=== PATIENT | male | born 1960 | race Caucasian/White ===

== ENCOUNTER 2022-08-04 16:13 | Inpatient (IN) | payer BC ==
[~2022-08-04] VITALS: Ht 170.2 cm; Wt 111.6 kg
[2022-08-04 16:20] VITALS: BP_SYST 130
--- NOTE | 2022-08-04 16:20 | NUR ---
Patient triaged and placed in waiting room. VSS and patient appears in no acute distress at this time. Accompanied by , awaiting available bed, and MD notified of need for MSE.
--- NOTE | 2022-08-04 16:25 | NUR ---
ER at bedside examining patient.
--- NOTE | 2022-08-04 16:30 | NUR ---
PT BIB FROM [facility]RG[facility]. CC RLQ PAIN. 06/26 PT IS AFEBRILE, FATIQUE AAOX3, SKIN INTACT.
[2022-08-04] MEDS ORDERED: MORPHINE 4 MG INJ. 4 MG/ML VIAL IVP ONE (17:30)
[2022-08-04] MEDS ORDERED: PIPERACILLIN/TAZO 3.375 GM in NS 50 ML IV ONE (17:30)
[2022-08-04 18:11] LABS: BASOPHILS % (AUTO) 0.3 % (0.0-2.0); EOSINOPHILS # (AUTO) 0.1 K/uL (0.0-0.4); EOSINOPHILS % (AUTO) 0.4 % (0.0-4.0); HEMATOCRIT 42.7 % (36-54); HEMOGLOBIN 14.4 g/dL (14.0-18.0); LYMPHOCYTES # (AUTO) 2.4 K/uL (1.0-5.5); LYMPHOCYTES % (AUTO) 17.6 % (20.5-51.5); MEAN CORPUSCULAR HEMOGLOBIN 32 pg (27-31); MEAN CORPUSCULAR HGB CONC 34 % (32-36); MEAN CORPUSCULAR VOLUME 93 fL (79.0-98.0); MONOCYTES # (AUTO) 1.3 K/uL (0.0-1.0); MONOCYTES % (AUTO) 9.1 % (1.7-9.3); NEUTROPHILS % (AUTO) 72.6 % (40.0-70.0); PLATELET COUNT (AUTO) 164 K/uL (130-430); RED BLOOD CELL COUNT(AUTO) 4.57 MIL/uL (4.2-6.2); RED CELL DISTRIBUTION WIDTH 13.4 % (9.0-15.0); WHITE BLOOD COUNT (AUTO) 13.7 K/uL (4.8-10.8)
[2022-08-04 18:17] LABS: INR 1.1 (0.80-1.20)
[2022-08-04 18:32] LABS: CALCIUM 9.6 mg/dL (8.4-11.0); CREATININE 0.85 mg/dL (0.55-1.30)
[2022-08-04 18:39] LABS: ALBUMIN 3.7 g/dL (3.4-4.8); TOTAL BILIRUBIN 0.8 mg/dL (0.0-1.0)
[2022-08-04] MEDS ORDERED: PIPERACILLIN/TAZOBACTAM 3.375 GM/VIAL (ZOSYN) IV ONE (18:51)
--- NOTE | 2022-08-04 19:24 | NUR ---
Admit bed requested Patient will be admitted to care of . Admitted to MEDSURG unit. Diagnosis APPENDICITIS Inpatient (Yes or No) Y Observation (Yes or No) N Orientation concerns or request close to nursing station (Yes or No) N Covid Status PENDING On vent or bipap N Isolation requirements N Needs a sitter N From Home (Yes or if No enter name of facility) HOME Requires Dialysis (Yes or No) N Med Rec Completed (Yes of No) PENDING
--- NOTE | 2022-08-04 20:04 | NUR ---
COVID SAMPLE COLLECTED AND SENT TO LAB
[2022-08-04] MEDS: D5/0.45 NS 1,000 ML IV SCH (21:59)
[2022-08-04] MEDS ORDERED: ACETAMINOPHEN 325 MG TABLET PO PRN (22:15)
[2022-08-04] MEDS ORDERED: MORPHINE 2 MG/ML INJ. SYRINGE IVP PRN ×2 (22:15→22:45)
--- NOTE | 2022-08-04 22:19 | NUR ---
Patient will be admitted to care of MD CALDERON. Admitted to MEDSURG unit. Will go to room 102. Belongings list completed. Complete and up to date summary report printed. SBAR report to be given at bedside with opportunity for questions. PATY CARDENAS TOOK PHONE REPORT.
[2022-08-04 22:37] VITALS: BP_SYST 115
[2022-08-04] MEDS: PIPERACILLIN/TAZO 3.375/DEX-IS 50 ML IV SCH (23:22)
--- NOTE | 2022-08-05 00:31 | NUR ---
CONSULTATION PAGED/CALLED Reason for Consultation: CARDIAC CLEARANCE Person Who was Notified: DR Samantha JANSEN VIA TEXT Consulting Physician: Samantha JANSEN Retail Field Supervisor Specialty: Ordering Physician: KVNG
--- NOTE | 2022-08-05 00:32 | NUR ---
CONSULTATION PAGED/CALLED Reason for Consultation: APPENDICITIS Person Who was Notified: ER SPOKE WITH KULWINDER RBO Consulting Physician: DR KULWINDER MARADIAGA Studio Director Specialty: Ordering Physician: KVNG
[2022-08-05] MEDS ORDERED: PIPERACILLIN/TAZOBACTAM 3.375 GM/VIAL (ZOSYN) IV ONE (04:56)
[2022-08-05] MEDS: PIPERACILLIN/TAZO 3.375/DEX-IS 50 ML IV SCH ×4 (05:10→23:50)
--- NOTE | 2022-08-05 06:11 | NUR ---
rn ntoes patient remains on room air, no sob noted. IV ABX given. Slept all night and shows no s/s of pain at this time, did not ask for any pain medication. D5 1/2 NS @ [address] Rios aware of patient here. NPO since midnight, meds only.
[2022-08-05 08:00] VITALS: BP_SYST 132
[2022-08-05 08:48] LABS: BASOPHILS % (AUTO) 0.4 % (0.0-2.0); EOSINOPHILS % (AUTO) 0.7 % (0.0-4.0); HEMATOCRIT 41.8 % (36-54); HEMOGLOBIN 14.3 g/dL (14.0-18.0); LYMPHOCYTES # (AUTO) 1.6 K/uL (1.0-5.5); LYMPHOCYTES % (AUTO) 23.2 % (20.5-51.5); MEAN CORPUSCULAR HEMOGLOBIN 32 pg (27-31); MEAN CORPUSCULAR HGB CONC 34 % (32-36); MEAN CORPUSCULAR VOLUME 94 fL (79.0-98.0); MONOCYTES # (AUTO) 0.7 K/uL (0.0-1.0); MONOCYTES % (AUTO) 10.4 % (1.7-9.3); NEUTROPHILS # (AUTO) 4.6 K/uL (1.8-7.7); NEUTROPHILS % (AUTO) 65.3 % (40.0-70.0); PLATELET COUNT (AUTO) 152 K/uL (130-430); RED BLOOD CELL COUNT(AUTO) 4.46 MIL/uL (4.2-6.2); RED CELL DISTRIBUTION WIDTH 13.8 % (9.0-15.0); WHITE BLOOD COUNT (AUTO) 7.1 K/uL (4.8-10.8)
[2022-08-05 09:02] LABS: CALCIUM 8.8 mg/dL (8.4-11.0); CREATININE 0.83 mg/dL (0.55-1.30)
[2022-08-05 09:06] LABS: INR 1.1 (0.80-1.20); PROTHROMBIN TIME 10.8 SECS (9.5-12.5)
[2022-08-05] MEDS: D5/0.45 NS 1,000 ML IV SCH ×2 (11:03→18:45)
[2022-08-05] MEDS ORDERED: METF-518 PO (12:07)
[2022-08-05] MEDS ORDERED: RIVA20TA PO (12:07)
[2022-08-05] MEDS ORDERED: SITA100T11 PO (12:07)
[2022-08-05] MEDS ORDERED: CARV6.2554 PO (12:07)
[2022-08-05] MEDS ORDERED: FLEC50TA2 PO (12:12)
[2022-08-05 12:23] LABS: BILIRUBIN,URINE NEGATIVE (NEGATIVE); BLOOD, URINE NEGATIVE (NEGATIVE); CLARITY/URINE CLEAR (CLEAR); COLOR,URINE YELLOW (YELLOW); GLUCOSE,URINE NEGATIVE (NEGATIVE); KETONES,URINE NEGATIVE (NEGATIVE); LEUKOCYTE ESTERASE ,URINE NEGATIVE (NEGATIVE); NITRITE, URINE NEGATIVE (NEGATIVE); PH,URINE 6.5 (5.0-8.0); PROTEIN URINE NEGATIVE (NEGATIVE)
[2022-08-05] MEDS ORDERED: NS IRRIG SOLN 1000 ML IR ONE (16:30)
[2022-08-05] MEDS ORDERED: ROCURONIUM BROMIDE 10 MG/ML (ZEMURON) IV ONE (16:30)
[2022-08-05] MEDS ORDERED: PROPOFOL 200MG/ 20ML VIAL (DIPRIVAN) IV ONE (16:30)
[2022-08-05] MEDS ORDERED: BUPIVACAINE /PF 0.25% 30 ML VIAL INJ ONE (16:30)
[2022-08-05] MEDS ORDERED: PHENYLEPHRINE HCL 10 MG/ML VIAL (NEOSYNEPHRINE) IV ONE (16:30)
[2022-08-05] MEDS ORDERED: LR 1,000 ML IV.SOLN IV ONE (16:30)
[2022-08-05] MEDS ORDERED: DEXAMETHASONE SOD PHOSPHATE 4 MG/ML VIAL IVP ONE (16:30)
[2022-08-05] MEDS ORDERED: SEVOFLURANE 15 MIN GAS INH ONE (16:30)
[2022-08-05] MEDS ORDERED: MIDAZOLAM HCL 5 MG/5 ML VIAL IVP ONE (16:30)
[2022-08-05] MEDS ORDERED: SUGAMMADEX SODIUM 200 MG/2 ML VIAL IV ONE (16:30)
[2022-08-05] MEDS ORDERED: METOPROLOL TARTRATE 5 MG/5 ML VIAL IVP ONE (16:30)
[2022-08-05] MEDS ORDERED: HYDROmorphone 2 MG/ML VIAL IVP ONE (16:30)
[2022-08-05] MEDS ORDERED: dilTIAZem HCL IVP 5 MG/ML VIAL ONE (16:48)
[2022-08-05] MEDS ORDERED: VERAPAMIL HCL 2.5 MG/ML 2ML VIAL ONE (16:49)
[2022-08-05] MEDS ORDERED: MEPERIDINE HCL/PF 25 MG/ML DISP.SYRIN IVP PRN (17:45)
[2022-08-05] MEDS ORDERED: ONDANSETRON HCL 4 MG/2 ML VIAL IVP PRN (17:45)
[2022-08-05] MEDS ORDERED: HYDROmorphone 1 MG/ML INJ. CARTRIDGE IVP PRN (17:45)
[2022-08-05] MEDS ORDERED: NALOXONE HCL 0.4 MG/ML AMP (NARCAN) IVP PRN (17:45)
[2022-08-05 17:49] VITALS: BP_SYST 132
[2022-08-05] MEDS ORDERED: MEPERIDINE HCL/PF 25 MG/ML DISP.SYRIN ONE (18:17)
[2022-08-05 18:37] VITALS: BP_SYST 121
[2022-08-05 19:17] VITALS: BP_SYST 107
--- NOTE | 2022-08-05 19:30 | NUR ---
Patient awaiting surgery most of day. Dr MARADIAGA called mid morning to alert staff of surgery to be scheduled this afternoon. New order's noted with chest x ray, echo, T/C for blood etc. No pain prior to surgery HR slightly on high side 110's to 120's with BP in 130 systolic range. Patient taken to surgery around 16:00 and returned prior to night cleaner 18:45. VSS no temp on O2 at 2 liter's NS sat's good at 96 percent. Already requesting to eat. Prior to giving patient over to night cleaner started on clear liquid's tolerated well then can advance to soft low fiber as tolerated. Patient received Cardizem and Verapamil during surgery for HR. Patient came back from surgery with HR 106 to 110. Medication's placed in system earlier by myself for reconciliation. Patient diabetic with some heart disease. Plan to start home med's tomorrow. to stay with patient tonight at bedside. Requesting pain medication already received dose Demerol before coming to floor by recovery nurse. In good spirit's no complication's. Noted to have three small incision's from surgery all intact in lower abdomen. Report given to night nurse to follow up on pain medication.
[2022-08-05] MEDS ORDERED: MORPHINE 4 MG INJ. 4 MG/ML VIAL IVP PRN (20:45)
[2022-08-05 21:45] VITALS: BP_SYST 114
[2022-08-06] MEDS: D5/0.45 NS 1,000 ML IV SCH (02:48)
[2022-08-06] MEDS: PIPERACILLIN/TAZO 3.375/DEX-IS 50 ML IV SCH ×3 (05:30→18:10)
--- NOTE | 2022-08-06 06:19 | NUR ---
rn notes patient remains on room air, no sob noted, pain under control all shift. Given IV abx. Still waiting for medication recon, per AM nurse, is aware of the task.
[2022-08-06] MEDS: HYDROmorphone 2 MG/ML VIAL IVP PRN ×2 (06:47→22:23)
[2022-08-06 07:22] LABS: BASOPHILS % (AUTO) 0.1 % (0.0-2.0); HEMATOCRIT 42.4 % (36-54); HEMOGLOBIN 14.4 g/dL (14.0-18.0); LYMPHOCYTES # (AUTO) 1.1 K/uL (1.0-5.5); LYMPHOCYTES % (AUTO) 10.1 % (20.5-51.5); MEAN CORPUSCULAR HEMOGLOBIN 32 pg (27-31); MEAN CORPUSCULAR HGB CONC 34 % (32-36); MEAN CORPUSCULAR VOLUME 94 fL (79.0-98.0); MONOCYTES # (AUTO) 0.5 K/uL (0.0-1.0); NEUTROPHILS # (AUTO) 9.2 K/uL (1.8-7.7); NEUTROPHILS % (AUTO) 84.8 % (40.0-70.0); PLATELET COUNT (AUTO) 176 K/uL (130-430); RED CELL DISTRIBUTION WIDTH 13.5 % (9.0-15.0); WHITE BLOOD COUNT (AUTO) 10.9 K/uL (4.8-10.8)
[2022-08-06 07:59] LABS: ALBUMIN 3.1 g/dL (3.4-4.8); CALCIUM 8.8 mg/dL (8.4-11.0); CREATININE 0.95 mg/dL (0.55-1.30); TOTAL BILIRUBIN 0.6 mg/dL (0.0-1.0)
[2022-08-06 08:00] VITALS: BP_SYST 108
[2022-08-06 11:45] VITALS: BP_SYST 119
[2022-08-06] MEDS: HYDROcodone/ACETAMIN 5-325 MG TAB (NORCO/ VICODIN) PO PRN ×2 (14:36→19:02)
[2022-08-06 16:10] VITALS: BP_SYST 111
--- NOTE | 2022-08-06 19:30 | NUR ---
Patient continues to do well after yesterday surgery. Continues to have mod pain in lower abdomen post op pain requiring [place] 5/325 po through out day. May have diulidid as well and encouraged patient to take IV pain medication tonight to help with pain and sleep. Continue's on IV antibiotic's IVF's discontinued as patient has some cardiac history and patient eating and drinking well. Able to get out of bed ambulates in room around bed sitting in chair. Abdomen surgical site's three in lower abdomen intact no drainage swelling noted. Patient requesting to go home all day but continues on IV antibiotic's and to have lab followed up in morning. White count just slight elevated at this time. No S/S of infection afebrile with good VS's. Educated if in need of stronger pain medication can take higher dose of [place] 10/325. Patient states only has pain with activity and denies pain at rest. Enjoying watching football came with watching [employer] against [employer]. report given to night RN with Plan of care to continue with IV antibiotic's and pain control. Anticipate patient to possibly be discharged tomorrow. Will need work release form from doctor to give employer. 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
[2022-08-06 19:40] VITALS: BP_SYST 140
--- NOTE | 2022-08-06 19:40 | NUR ---
PM ASSESSMENT; -Pt is a/xo4, resting in bed comfortably Pt denies any chest pain,pain,sob, or any acute distress. IV site of lac patent, no s/s any infiltration infusing well w/ NS. Discussed plan of care and safety measures, pt and verbalized understanding. Pt is able to ambulate with steady gaits. Call light /win reach, side rails x2. Cont to monitor pt.
--- NOTE | 2022-08-06 22:23 | NUR ---
PAIN MGMT -Pt is c/o abdom pain sharp 05/27 gave Dilaudid 1mg IVP for pain mgmt. will cont to monitor pt.
--- NOTE | 2022-08-06 22:40 | NUR ---
NOTES; -Called Alexys Maya regarding Dr. Escobar is okay to have pt to continue Xarelto po. Xarelto 20mg po qhs per .
[2022-08-06] MEDS ORDERED: RIVAROXABAN 10 MG TABLET ONE (23:53)
[2022-08-07] MEDS: PIPERACILLIN/TAZO 3.375/DEX-IS 50 ML IV SCH ×2 (00:02→05:11)
[2022-08-07 00:03] VITALS: BP_SYST 109
[2022-08-07] MEDS: D5/0.45 NS 1,000 ML IV SCH ×2 (00:03→05:11)
--- NOTE | 2022-08-07 01:50 | NUR ---
ROUNDS; -Pt is resting in bed comfortably. No s/s any acute distress noted. call light w/in reach. cont to monitor pt.
--- NOTE | 2022-08-07 06:40 | NUR ---
CLOSING NOTES; -Pt is resting in bed. Pt denies any chest pain,pain,sob,or any acute distress. Inserted new IV site of RAC, patent, no s/s any infiltration noted. surgical abd puncture sites cdi. IVF infusing antibiotic. Call light w/in reach,side rails x2, All safety measures in place. will endorse to next nurse to cont care.
--- NOTE | 2022-08-07 08:00 | NUR ---
Mr Chester has been assessed as indicated. he has been noted to be both pleasant and cooperative. His is at te bedside. She has brought breakfst from an outside restaurant. This was well tolerated well by Mr Chester. he ambulates with a steady gait. abdominal incisions are open to air with no s/s of infection. VSS. He denies pain at this time. He anticipates that he will be DC to home today.
[2022-08-07 08:22] LABS: BASOPHILS # (AUTO) 0.1 K/uL (0.0-0.2); BASOPHILS % (AUTO) 0.5 % (0.0-2.0); EOSINOPHILS # (AUTO) 0.1 K/uL (0.0-0.4); EOSINOPHILS % (AUTO) 0.5 % (0.0-4.0); HEMATOCRIT 44.5 % (36-54); HEMOGLOBIN 14.7 g/dL (14.0-18.0); LYMPHOCYTES # (AUTO) 2.8 K/uL (1.0-5.5); LYMPHOCYTES % (AUTO) 28.2 % (20.5-51.5); MEAN CORPUSCULAR HEMOGLOBIN 32 pg (27-31); MEAN CORPUSCULAR HGB CONC 33 % (32-36); MEAN CORPUSCULAR VOLUME 96 fL (79.0-98.0); MONOCYTES # (AUTO) 0.9 K/uL (0.0-1.0); MONOCYTES % (AUTO) 8.7 % (1.7-9.3); NEUTROPHILS # (AUTO) 6.2 K/uL (1.8-7.7); NEUTROPHILS % (AUTO) 62.1 % (40.0-70.0); PLATELET COUNT (AUTO) 152 K/uL (130-430); RED BLOOD CELL COUNT(AUTO) 4.62 MIL/uL (4.2-6.2); RED CELL DISTRIBUTION WIDTH 13.7 % (9.0-15.0)
[2022-08-07] MEDS: HYDROcodone/ACETAMIN 5-325 MG TAB (NORCO/ VICODIN) PO PRN (11:30)
[2022-08-07] MEDS ORDERED: CARVEDILOL 6.25 MG TABLET (COREG) PO ONE (13:00)
[2022-08-07 14:03] VITALS: BP_SYST 134
--- NOTE | 2022-08-07 14:20 | NUR ---
Mr Chester has been DC to home. He was compliant with the plan to DC. He had been successfully treated for pain x1 prior to DC This shift. IV access was removed. DC instructions were reviewed. He was aware of the need to make follow up appointments with his PCP vice president of manufacturing as well as his surgeon. He was provided a return to work slip. he is aware of amee restrictions. he was escorted to the front door by staff via WC he was driven home in a private vehicle by his Joan
[2022-08-07] MEDS ORDERED: CARVEDILOL 6.25 MG TABLET (COREG) PO SCH (21:00)
[2022-08-07] MEDS ORDERED: RIVAROXABAN 10 MG TABLET PO SCH (21:00)
== END 2022-08-07 23:50 | disposition home or self-care (01) | DRG 342 ==
LOC: SED 16:13 → SMU 19:26
PROVIDERS: ADMIT Internal Medicine; ATTEND Internal Medicine
PROC: 0DTJ4ZZ Resection of Appendix, Percutaneous Endoscopic Approach (ICD-10-PCS; principal; 2022-08-05 16:34)
DX: K35.80 Unspecified acute appendicitis (principal); I42.9 Cardiomyopathy, unspecified; R65.10 Systemic inflammatory response syndrome (SIRS) of non-infectious origin without acute organ dysfunction; I48.91 Unspecified atrial fibrillation; E66.01 Morbid (severe) obesity due to excess calories; Z20.822 Contact with and (suspected) exposure to COVID-19; E78.5 Hyperlipidemia, unspecified; Z79.01 Long term (current) use of anticoagulants; Z68.38 Body mass index [BMI] 38.0-38.9, adult
CPT/HCPCS: 36415; 71045; 80048; 80053; 81003; 85025; 85610-TC; 86886; 86900; 86901; 88304; 93005; 93306; 99285; C1727; J1100; J1170; J2175; J2250; J2270; J2370; J2543; J2704; J3490; J7060; J7120